=== PATIENT | female | born 1990 | race Caucasian/White ===

== ENCOUNTER 2018-02-10 21:13 | Emergency (ER) | payer MEDICAID ==
[~2018-02-10] VITALS: Ht 154.9 cm; Wt 56.8 kg
[~2018-02-10 21:13] MED LIST: AVELOX400 MG PO; CEPHALEXIN500 M2 PO; EYE DROPS 15 ML15 ML OP; NORCO 325 MG-51 TAB PO; NYSTATIN UD5 ML/CUP PO; TYLENOL 325MG325 MG PO
[2018-02-10 22:23] LABS: EOS % 0.2 % (1.0-5.0); HEMATOCRIT 44.1 % (37.0-47.0); HEMOGLOBIN 14.9 g/dL (12.5-16.0); LYMPH# 2.1 (1.50-4.00); MEAN CELL VOLUME 87 fl (78-100); MEAN CORPUSCULAR HEMOGLOBIN 29 pg (27-31); MEAN CORPUSCULAR HGB CONC 34 g/dL (33-37); MEAN PLATELET VOLUME 10.2 fl (7.4-10.4); MONO # 0.6 (0.20-0.80); NEU # 8.7 (1.40-6.50); PLATELET COUNT 181 K/mm3 (130-400); RED BLOOD COUNT 5.08 M/mm3 (4.10-5.30); RED CELL DISTRIBUTION WIDTH 13.6 % (11.5-14.5); WHITE BLOOD COUNT 11.5 K/mm3 (4.8-10.8)
[2018-02-10 22:36] LABS: ALBUMIN 3.8 g/dL (3.5-5.0); CALCIUM 8.3 mg/dL (8.4-10.2); TOTAL BILIRUBIN 0.8 mg/dL (0.2-1.3); TOTAL PROTEIN 7.3 g/dL (6.3-8.2)
[2018-02-10 22:47] LABS: URINE COLOR YELLOW
[2018-02-10 22:48] LABS: PH-URINE 7.5 (5.0 - 8.0); URINE APPEARANCE CLOUDY; URINE BILIRUBIN NEGATIVE (NEGATIVE); URINE BLOOD TRACE (NEGATIVE); URINE GLUCOSE NEGATIVE (NEGATIVE); URINE KETONE NEGATIVE (NEGATIVE); URINE LEUKOCYTE ESTERASE TRACE (NEGATIVE); URINE NITRATE NEGATIVE (NEGATIVE); URINE PROTEIN(semi-quant) TRACE mg/dL (NEGATIVE); URINE UROBILINOGEN 12 mg/dL (NORMAL)
[2018-02-11 00:07] LABS: PH-URINE 7.5 (5.0 - 8.0); URINE APPEARANCE HAZY; URINE BILIRUBIN NEGATIVE (NEGATIVE); URINE COLOR YELLOW; URINE GLUCOSE NEGATIVE (NEGATIVE); URINE KETONE NEGATIVE (NEGATIVE); URINE PROTEIN(semi-quant) TRACE mg/dL (NEGATIVE)
[2018-02-11 00:08] LABS: URINE BLOOD TRACE (NEGATIVE); URINE LEUKOCYTE ESTERASE TRACE (NEGATIVE); URINE NITRATE NEGATIVE (NEGATIVE); URINE UROBILINOGEN 12 mg/dL (NORMAL)
[2018-02-11 02:37] VITALS: BP 120/55
[2018-02-11] MEDS ORDERED: CIPRO500 M1 PO (02:51)
[2018-02-11 05:11] LABS: CALCIUM 7.2 mg/dL (8.4-10.2)
[2018-02-11 05:13] LABS: POTASSIUM 4.2 mmol/L (3.6-5.0)
== END 2018-02-11 05:10 | disposition home or self-care (01) ==
LOC: ED 21:13
PROVIDERS: Nurse Practitioner Family
DX: N10 Acute pyelonephritis (principal); E87.1 Hypo-osmolality and hyponatremia; F19.10 Other psychoactive substance abuse, uncomplicated
CPT/HCPCS: J0744; J1885; J2270; J7030; Q9967

== ENCOUNTER 2018-02-23 15:22 | Inpatient (IN) | payer MEDICAID ==
[~2018-02-23] VITALS: Ht 154.9 cm; Wt 68.6 kg
[~2018-02-23 15:22] MED LIST changes: +CIPRO500 M1 PO
[2018-02-23] MEDS ORDERED: CEFAZOLIN SODI IV (15:33)
[2018-02-23] MEDS ORDERED: PANTOPRAZOLE SO20 M1 PO (15:33)
[2018-02-23] MEDS ORDERED: ATIVAN0.5 MG PO (15:34)
[2018-02-23] MEDS ORDERED: TRAMADOL 50 MG TAB PO (15:34)
[2018-02-23 15:44] VITALS: BP 151/104
[2018-02-23 18:17] LABS: POTASSIUM 4.9 mmol/L (3.6-5.0)
[2018-02-23 18:26] LABS: EOS # 0.1 (0.04-0.40); HEMATOCRIT 33.9 % (37.0-47.0); HEMOGLOBIN 10.9 g/dL (12.5-16.0); MEAN CELL VOLUME 89 fl (78-100); MEAN CORPUSCULAR HEMOGLOBIN 29 pg (27-31); MEAN CORPUSCULAR HGB CONC 32 g/dL (33-37); MEAN PLATELET VOLUME 10.9 fl (7.4-10.4); MONO # 0.9 (0.20-0.80); NEU # 6.4 (1.40-6.50); PLATELET COUNT 207 K/mm3 (130-400); RED BLOOD COUNT 3.79 M/mm3 (4.10-5.30); RED CELL DISTRIBUTION WIDTH 15.1 % (11.5-14.5); WHITE BLOOD COUNT 10.5 K/mm3 (4.8-10.8)
[2018-02-23 18:49] VITALS: BP 133/92
[2018-02-23 19:03] LABS: URINE APPEARANCE HAZY; URINE BILIRUBIN NEGATIVE (NEGATIVE); URINE BLOOD TRACE (NEGATIVE); URINE COLOR YELLOW; URINE GLUCOSE NEGATIVE (NEGATIVE); URINE KETONE NEGATIVE (NEGATIVE); URINE NITRATE NEGATIVE (NEGATIVE); URINE PROTEIN(semi-quant) 3+ mg/dL (NEGATIVE); URINE UROBILINOGEN NORMAL (NORMAL)
[2018-02-23 19:37] LABS: URINE LEUKOCYTE ESTERASE TRACE (NEGATIVE)
[2018-02-24 06:34] VITALS: BP 125/89
[2018-02-24 19:34] VITALS: BP 138/95
[2018-02-25 06:28] VITALS: BP 122/76
[2018-02-25 14:13] VITALS: BP 141/101
[2018-02-25 14:27] LABS: EOS # 0.1 (0.04-0.40); EOS % 1.6 % (1.0-5.0); HEMATOCRIT 33.4 % (37.0-47.0); HEMOGLOBIN 10.4 g/dL (12.5-16.0); LYMPH# 2.4 (1.50-4.00); MEAN CELL VOLUME 92 fl (78-100); MEAN CORPUSCULAR HEMOGLOBIN 29 pg (27-31); MEAN CORPUSCULAR HGB CONC 31 g/dL (33-37); MEAN PLATELET VOLUME 10.7 fl (7.4-10.4); MONO # 0.5 (0.20-0.80); NEU # 4.3 (1.40-6.50); PLATELET COUNT 193 K/mm3 (130-400); RED BLOOD COUNT 3.65 M/mm3 (4.10-5.30); RED CELL DISTRIBUTION WIDTH 15.1 % (11.5-14.5); WHITE BLOOD COUNT 7.4 K/mm3 (4.8-10.8)
[2018-02-25 14:28] LABS: ALBUMIN 2.9 g/dL (3.5-5.0); CALCIUM 8.3 mg/dL (8.4-10.2); TOTAL BILIRUBIN 0.3 mg/dL (0.2-1.3); TOTAL PROTEIN 6.1 g/dL (6.3-8.2)
[2018-02-25 18:43] VITALS: BP 136/98
[2018-02-25 19:26] LABS: ERYTHROCYTE SEDIMENTATION RATE 40 mm/hr (0-20)
[2018-02-26 06:33] VITALS: BP 153/105
[2018-02-26 06:59] LABS: ALBUMIN 2.6 g/dL (3.5-5.0); POTASSIUM 4.7 mmol/L (3.6-5.0); TOTAL BILIRUBIN 0.2 mg/dL (0.2-1.3); TOTAL PROTEIN 5.8 g/dL (6.3-8.2)
[2018-02-26 07:11] LABS: EOS # 0.1 (0.04-0.40); EOS % 1.6 % (1.0-5.0); HEMATOCRIT 31.3 % (37.0-47.0); HEMOGLOBIN 9.9 g/dL (12.5-16.0); LYMPH# 2.5 (1.50-4.00); MEAN CELL VOLUME 91 fl (78-100); MEAN CORPUSCULAR HEMOGLOBIN 29 pg (27-31); MEAN CORPUSCULAR HGB CONC 32 g/dL (33-37); MEAN PLATELET VOLUME 11.1 fl (7.4-10.4); MONO # 0.5 (0.20-0.80); NEU # 4.4 (1.40-6.50); PLATELET COUNT 202 K/mm3 (130-400); RED BLOOD COUNT 3.43 M/mm3 (4.10-5.30); RED CELL DISTRIBUTION WIDTH 14.9 % (11.5-14.5); WHITE BLOOD COUNT 7.6 K/mm3 (4.8-10.8)
[2018-02-26 15:59] LABS: HEPATITIS C ANTIBODY Reactive (Negative)
== END 2018-02-26 11:24 | disposition short-term general hospital (02) | DRG 947 ==
LOC: MED/SURG 15:22
PROVIDERS: Nurse Practitioner Primary Care; ADMIT Nurse Practitioner
PROC: 02HV33Z Insertion of Infusion Device into Superior Vena Cava, Percutaneous Approach (ICD-10-PCS; principal; 2018-02-25)
DX: R53.81 Other malaise (principal); I33.0 Acute and subacute infective endocarditis; B95.61 Methicillin susceptible Staphylococcus aureus infection as the cause of diseases classified elsewhere; F17.210 Nicotine dependence, cigarettes, uncomplicated; B19.20 Unspecified viral hepatitis C without hepatic coma; D69.6 Thrombocytopenia, unspecified; F15.10 Other stimulant abuse, uncomplicated; F12.10 Cannabis abuse, uncomplicated; N28.9 Disorder of kidney and ureter, unspecified; I50.810 Right heart failure, unspecified
CPT/HCPCS: A4216; J0690; J1644; J2405; J2550

== ENCOUNTER 2018-03-03 12:26 | Inpatient (IN) | payer MEDICAID ==
[~2018-03-03] VITALS: Ht 154.9 cm; Wt 60.4 kg
[~2018-03-03 12:26] MED LIST changes: +ATIVAN0.5 MG PO; +CEFAZOLIN SODI IV; +PANTOPRAZOLE SO20 M1 PO; +TRAMADOL 50 MG TAB PO
[2018-03-03 14:38] VITALS: BP 164/113
[2018-03-03] MEDS ORDERED: COREG12.5 M1 PO (14:49)
[2018-03-03] MEDS ORDERED: LASIX40 M1 PO (14:50)
[2018-03-03] MEDS ORDERED: APRESOLINE 25MG25 MG PO (14:51)
[2018-03-03] MEDS ORDERED: NICODERM C TOP (14:53)
[2018-03-03] MEDS ORDERED: TYLENOL 325MG325 MG PO (14:55)
[2018-03-03] MEDS ORDERED: BENGAY GREASELE57 GM TP (14:57)
[2018-03-03 14:59] VITALS: BP 164/113
--- NOTE | 2018-03-03 15:00 | NUR ---
PATIENT ARRIVED TO [facility] VIA MEDICAL TRANSPORT FROM [facility]. REPORT RECEIVED FROM [facility] NURSE AGNES. PATIENT AMBULATED WITHOUT ASSIST TO ROOM. PICC LINE NOTED TO RIGHT UPPER ARM. PATIENT REPORTS SHE HAS PAIN ALL OVER BUT VERBALIZES UNDERSTANDING THAT SHE IS ON LIMITED PAIN MEDICATIONS AND TO UTILIZE OTHER MEANS FOR PAIN RELIEF. PATIENT GIVEN A SANDWICH AND COKE AND WATER. PATIENT SITTING UP IN BED WITHOUT COMPLAINTS. PATIENT REQUESTS TAKING A SHOWER NOW AND CURRICULUM DEVELOPER HELPED COVER PICC LINE. PATIENT COOPERATIVE WITH ASSESSMENT. PATIENT VERBALIZES SHE IS HERE TO RECEIVE MEDS FOR HER HEART AND SHE SAYS SHE HAS A CHILD AT HOME AND UNDERSTANDS HOW IMPORTANT IT IS DO THIS.
--- NOTE | 2018-03-03 17:15 | NUR ---
Pt calls, requests to go for walk outside. EDUCATION REP accompanies pt outside where pt asks, "If you don't tell anybody and I can get a cigarette, would you allow me to smoke?" EDUCATION REP denies request, pt then says it's too cold outside and wants to go back inside. Pt ambulates to room without difficulty.
--- NOTE | 2018-03-03 17:36 | NUR ---
Pt calls, states that "the tramadol's not working." Reports that pain to bilat legs is getting worse. Remind pt that tramadol was only given 20 minutes ago. Pt states "no I'm talking about the tramadol I had earlier. Can I get something else? You guys gave me the "O" one when I was here before." Inform pt that she has bengay available and a k-pad at her disposal, she would benefit from stretching her legs instead of rolling up into a ball and that the medications we currently have ordered are the same options that she was getting at [facility], for pain. Pt closes eyes, begins wailing and yells "but it's not working."
[2018-03-03 18:00] VITALS: BP 156/108
--- NOTE | 2018-03-03 18:08 | NUR ---
PATIENT CALLED FOR ANOTHER COKE. EDUCATED PATIENT SHE IS ON A LOW SALT DIET AND SODA HAS TOO MUCH SALT FOR HER TO HAVE MORE. SHE DRANK ONE AT TIME OF ARRIVAL.
--- NOTE | 2018-03-03 18:26 | NUR ---
FAMILY/FRIENDS HERE TO VISIT WITH PATIENT. HER FIANCE AND A FEMALE FRIEND AT BEDSIDE. NO BAGS BROUGHT IN THAT WERE VISIBLE. PATIENT IS SITTING ON BED THIS NURSE AT DOORWAY WHILE FRIENDS ARE VISITING.
--- NOTE | 2018-03-03 19:05 | NUR ---
PATIENT IS RESTING IN ROOM, COMPLAINS OF LEGS ACHING AND HAS BEEN EDUCATED SEVERAL TIMES TODAY REGARDING PAIN MEDS AND EXERCISES TO HELP WITH PAIN. PATIENT CONTINUES TO ASK FOR PAIN MEDS, WANTS TO GO OUTSIDE TO SMOKE AND REQUESTS SODA IN WHICH SHE HAS BEEN EDUCATED ON ALL INSTANCES REASONING FOR NOT BEING AVAILABLE TO HAVE THOSE ITEMS. PATIENT VERBALIZES UNDERSTANDING. PATIENT DOES GET IN SHOWER OFTEN, HAS A K-PAD FOR HEAT TO EXTREMETIES, UP AD YENNIFER FOR EXERCISING. PATIENT ASKING HER FIANCE TO GO GET HER POP AND FOOD. I EDUCATED BOTH HER AND FRIENDS REGARDING HER DIET ORDER AND NON-SMOKING POLICY.
--- NOTE | 2018-03-03 22:05 | NUR ---
PATIENT SLEEPING, RESP EVEN/UNLABORED, CALL LIGHT WITHIN REACH
--- NOTE | 2018-03-04 01:00 | NUR ---
PATIENTS SON HAS BEEN AT HER BEDSIDE SINCE SHE WAS ADMITTED TO THE FLOOR, HE HAS BEEN UP FOR 24 HOURS AND IS VERY TIRED, PATIENT HAS REMAINED FAIRLY STABLE FOR THE PAST FEW HOURS, RESPIRATIONS REMAIN EVEN AND UNLABORED, NO MOTTLING NOTED, PATIENT CONTINUES TO HAVE ADEQUATE URINE OUTPUT IN THE LUTZ, SON DECIDES HE WANTS TO GO HOME TO REST, NURSE PROMISES TO CALL IF ANY MAJOR CHANGES NOTED IN PATIENTS STATUS, SON LEAVES AT THIS TIME, NURSE WILL CONTINUE TO MONITOR PATIENT CLOSELY
--- NOTE | 2018-03-04 06:10 | NUR ---
PATIENT IS NOW NONRESPONSIVE, STARTING TO HAVE SHORT PERIODS OF APNEA, MOTTLING NOTED, NURSE ATTEMPTS TO CALL PATIENTS SON X 2 WITHOUT SUCCESS, VOICEMAIL LEFT AT THIS TIME
[2018-03-04 06:30] VITALS: BP 141/97
--- NOTE | 2018-03-04 07:00 | NUR ---
PATIENT NOW HAVING LONGER PERIODS OF APNEA, NO URINE OUTPUT NOTED IN THE PAST HOUR, MOTTLING GETTING WORSE, NURSE CALLS PATIENTS SON, IS ABLE TO GET AHOLD OF HIM AND HE WILL COME BACK IN, HE REALLY WANTED TO BE THERE WHEN SHE PASSED, WILL CONTINUE TO MONITOR CLOSELY
--- NOTE | 2018-03-04 08:35 | NUR ---
PATIENTS SON ARRIVES TO BEDSIDE, NURSE REMAINED AT BEDSIDE FROM 0700 UNTIL SON ARRIVED SO SHE WOULD NOT BE ALONE, PROVIDER UPDATED ON PATIENTS STATUS, NO URINE OUTPUT NOTED IN LUTZ SINCE IT WAS EMPTIED AT 0600, TUBING CHECKED FOR PATENCY,
--- NOTE | 2018-03-04 10:31 | NUR ---
Walked into room, pt sleeping soundly, lying L side on bed, no acute distress noted. Pt did not awaken, allowed to continue sleeping.
--- NOTE | 2018-03-04 12:18 | NUR ---
Leonardo Cardona APRN at bedside. Pt agreeable to try Voltaren Topical Gel to BLE for pain. Instruct pt on use. Inform not to use heating pads for at least 1 hour after application and no shower for at least 30 minutes. Pt is acknowledges understanding and is willing to comply at this time.
--- NOTE | 2018-03-04 13:48 | NUR ---
Education provided on list of dx. Pt acknowledges understanding and asks appropriate questions.
--- NOTE | 2018-03-04 13:55 | NUR ---
Pt maikel' arrives to visit pt. Staff member to room during visit.
--- NOTE | 2018-03-04 14:35 | NUR ---
Pt requests to walk outside. Staff accompany pt and fiance' outside where pt gets cigarette from fiance', sits down on pavement in [address] and starts smoking. Staff informs pt that she is not allowed to smoke on property to which pt states "well, I don't have shoes on either, so I guess I'm just a rebel." Finishes cigarette and returns to room. Notify provider of situation.
--- NOTE | 2018-03-04 14:40 | NUR ---
Provider, Leonardo Cardona APRN, at pt bedside.
--- NOTE | 2018-03-04 14:55 | NUR ---
Leonardo Cardona APRN, returns from pt room. States that pt is leaving AMA, after lengthy discussion about ramifications of such. Instructs that pt is willing to sign AMA and have PICC line pulled prior to d/c.
--- NOTE | 2018-03-04 14:57 | NUR ---
Discuss with pt and maikel' possible risks of leaving AMA. Pt reports that she has put "a lot of thought into this and this is the right decision." Reports that she is going straight from this facility to [facility] in [place] as this is where "all my other doctors are." Pt signs AMA, PICC line pulled, pressure placed at insertion site then pressure dressing applied. Instructed pt to leave dressing in place for at least an hour. Pt acknowledges understanding.
--- NOTE | 2018-03-04 15:01 | NUR ---
Pt and maikel' ambulate from facility with all pt belongings. Pt stops at nurses station, informs provider that she is leaving. Provider again asks pt where she is going. Reports that she is going to [facility], that she already talked to Dr. Mccoy "and he knows I'm coming." Provider reinforces that there is certain criteria that must be met for an acute admit and asks if pt has been accepted and pt again states "he knows I'm coming, I just talked to him." Pt requests that she may contact provider to aprise of her progress, provider agrees. Pt then leaves facility.
--- NOTE | 2018-03-04 16:21 | NUR ---
Pt leaves [facility] after extensive education regarding her condition. She states she has called [facility] and they will take her and treat her. She is upset about her pain med orders that were carried on from [facility] and wants to go to [facility] and see if they will treat her w/ additional pain meds. She is also teary about [facility] taking her daughter and placing her in foster care, she is very worried, and states she hopes that they will place her daughter w/ her paternal grandmother. She reiterates that she is "Clean" and intends to stay clean for her daughter's sake.
--- NOTE | 2018-03-05 16:57 | NUR ---
03-05-18 F/U calls made to [facility], [facility], and [facility] to see if pt was admitted as IP or ED patient. She was not. Call made to [facility] Hepatology Department to see which was her "liver doctor". Dr Manny Hoyt's office states that she had an appointment on 03-06-18 to see him, made over a year ago for her Hep C diagnosis, they had no plans, nor had they been contacted to admit her as an IP. They did make a call to see if she was going to keep her appointment on the and she stated no, because she would be admitted to [facility] in [facility] on this date. At 1600 [facility] ED [facility] calls requesting records as pt is now in their ED. [facility] is notified of pt leaving AMA and this note is faxed to them w/ discharge summary.
== END 2018-03-04 15:01 | disposition left against medical advice (07) | DRG 871 ==
LOC: MED/SURG 12:26
PROVIDERS: ADMIT Nurse Practitioner Primary Care
DX: A41.01 Sepsis due to Methicillin susceptible Staphylococcus aureus (principal); I33.0 Acute and subacute infective endocarditis; I26.90 Septic pulmonary embolism without acute cor pulmonale; N17.9 Acute kidney failure, unspecified; R65.20 Severe sepsis without septic shock; B95.61 Methicillin susceptible Staphylococcus aureus infection as the cause of diseases classified elsewhere; F12.21 Cannabis dependence, in remission; F15.21 Other stimulant dependence, in remission; I36.1 Nonrheumatic tricuspid (valve) insufficiency; G89.29 Other chronic pain; B19.20 Unspecified viral hepatitis C without hepatic coma
CPT/HCPCS: A9270-GY; J0690